=== PATIENT | male | born 1940 | race Caucasian/White ===

== ENCOUNTER 2016-12-21 09:13 | Inpatient (IN) | payer OTHER ==
[~2016-12-21] VITALS: Ht 172.7 cm; Wt 58.6 kg
--- NOTE | 2016-12-21 10:51 | DIAGNOSTIC IMAGING REPORT ---
PROCEDURE: CT HEAD WITHOUT CONTRAST INDICATION: WEAKNESS TECHNIQUE: Noncontrast axial images with sagittal and coronal reformations. COMPARISON: None. FINDINGS: There is mild to moderate old small vessel disease of the white matter (most pronounced in the occipital lobes). Brain and ventricles are otherwise normal. No evidence of hemorrhage. There is severe mucosal thickening in the left maxillary sinus, left ethmoid air cells, and left sphenoid sinus (suggests chronic obstruction of the left nasal passage). The rest of the sinuses and mastoids appear normal IMPRESSION: 1. 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 2. Otherwise a head CT. No definite evidence of acute process. 3. Severe mucosal thickening in the left maxillary sinus, left ethmoid air cells, and left sphenoid sinus suggests chronic obstruction of the nasal passages. 4. Findings discussed with Dr. Aaron Colunga at [address] scans at this facility use dose modulation, iterative reconstruction, and/or weight-based dosing when appropriate to reduce radiation dose to as low as reasonably achievable.
--- NOTE | 2016-12-21 10:53 | DIAGNOSTIC IMAGING REPORT ---
PROCEDURE: XR CHEST 1 VIEW INDICATION: Possible CVA. Weakness. Cough. TECHNIQUE: Portable AP view (1005 hours). COMPARISON: None. FINDINGS: There is a 9 cm right upper lung density or mass with elevation of the right hilum. Left lung is clear. Heart and mediastinum are normal. Thorax is normal. IMPRESSION: 1. There is a 9 cm right upper lung density or mass suspicious for neoplasm. 2. Otherwise negative chest.
--- NOTE | 2016-12-21 11:16 | DIAGNOSTIC IMAGING REPORT ---
PROCEDURE: CT THORAX WITH CONTRAST INDICATION: Right upper lung mass. TECHNIQUE: 125 ml of Isovue 300 injected intravenously and axial images were obtained of the entire thorax with sagittal and coronal reconstructions. COMPARISON: Comparison is made to chest x-ray earlier today (12/21/2016). FINDINGS: There is an 8.5 x 6.0 x 8.3 cm anterior segment right upper lung density with central necrosis, volume loss, and central dystrophic calcification. This is associated erosive changes of the right second rib. There are 10 mm nodular densities in the left lateral lingula and right medial lung base. There are three to four vague areas of parenchymal changes in the medial right lower lobe and left upper lung. Heart and mediastinum are normal size. There is an old calcified mediastinal lymph node, but no evidence of adenopathy. Mild degenerative changes of the thoracic spine. Portions of the upper abdomen are seen. There are small calcified gallstones. Adrenal glands appear normal. There are multiple bilateral renal cysts. There is a 1.4 cm low density area in the left lobe of the liver most likely representing a cyst. IMPRESSION: 1. There is an 8.5 x 6.0 x 8.3 cm right upper lung mass with erosive changes of the right second rib. Findings are highly suspicious for neoplasm. 2. There are 10 mm nodular densities in the lateral lingula and right medial lung base suspicious for neoplasm (e.g., metastatic disease). 3. There are vague parenchymal densities in the right lower lobe and left upper lung which could represent scarring or developing areas of pneumonitis. 4. Old granulomatous disease (right upper lung and mediastinum). 5. Cholelithiasis. 6. Findings discussed with Dr. Aaron Colunga. All CT scans at this facility use dose modulation, iterative reconstruction, and/or weight-based dosing when appropriate to reduce radiation dose to as low as reasonably achievable.
--- NOTE | 2016-12-21 12:27 | ED NURSING NOTES ---
Clinical Report - Nurses [facility] [address] [place] [address] 12/21/2016 9:15 Patient: YAAKOV GILES TRIAGE Triage time 0913. Acuity: LEVEL 2. Chief Complaint: WEAKNESS and FACIAL DROOP. 09:13 12/21/16. Alert. No acute distress. SEPSIS SCREEN: Sepsis Screen. Negative (no infection suspected/documented). CRUZ COMA SCORE: [place] Coma Scale: 15- eyes open spontaneously (4); best verbal response- oriented x 4 (5); best motor response- obeys commands (6). --09:24 Drea Durant R.N. 09:13 12/21/16. BP: 166/81. HR: 79. RR: 16. O2 saturation: 100%. Temp: 98.0 F. Pain level now 0/10. --09:24 Drea Durant R.N. Weight: 58.5 kg measured. Height/Length: 68 inches Per Patient. BMI: 19.6. --09:20 Drea Durant R.N. Medications Cosopt Ophthalmic. --09:22 Drea Durant R.N. Allergies Celebrex. --09:22 Drea Durant R.N. History Arrived by private vehicle. Historian: patient. Accompanied by friend. Primary physician (jairo). ( states he started having difficulty eating last night and difficulty placing dentures this morning. Looked in the mirror and noticed right sided facial droop. Presents with cc of facial droop, difficulty walking and "unable to see the whole newspaper this morning".). This started last night. ( Code stroke called at 0910). Treatment SYSTEMS MANAGER: None. SOCIAL HX: Former smoker. No drug use. FALL RISK ASSESSMENT: Fall risk assessment completed. No fall risk identified. NUTRITIONAL RISK ASSESSMENT: The nutritional risk assessment revealed no deficiencies. FUNCTIONAL ASSESSMENT: Functional assessment: no impairments noted. LEARNING NEEDS ASSESSMENT: The learning needs assessment revealed no barriers. SKIN INTEGRITY ASSESSMENT: Skin integrity risk assessment completed. No skin integrity risk identified. --09:24 Drea Durant R.N. PROBLEMS: Cancer. Hypertension. --09:22 Drea Durant R.N. ADDITIONAL SURGERIES: Dental Surgery. Hernia Repair. Prostate surgery. --: Drea Durant R.N. Interventions ID band on patient. To treatment room. --09:24 Drea Durant R.N. PHYSICAL ASSESSMENT 09:12/21/16. Ambulatory to room. Baseline functional status: usually alert and oriented x4. GENERAL / NEURO / PSYCH: Awake. Oriented X 4. Alert. Mood/affect normal. ( right sided facial droop present. Equal bilateral integrated marketing specialist). HEENT: Right-sided facial weakness. RESPIRATORY: Respirations not labored. CVS: Capillary refill less than 2 seconds. SKIN: Skin is intact, warm and dry. --09:25 Drea Durant R.N. NURSING PROGRESS NOTES 09:12/21/2016 Site #1 started via IV in the right antecubital space with an 18g angiocath, with aseptic technique and good blood return; one attempt. Blood drawn: rainbow set. Labeled in the presence of the patient and sent to the lab. Saline lock flushed with 10 mL saline (Yana Bradford RN). --09:25 Drea Durant R.N. 09:12/21/2016 Site #2 started via IV in the left antecubital space with an 18g angiocath, with aseptic technique and good blood return; one attempt. Blood drawn: rainbow set. Labeled in the presence of the patient and sent to the lab. Saline lock flushed with 10 mL saline. --09:26 Drea Durant R.N. 09:12/21/16. The plan of care for this patient has been created. model maker, pulse oximeter and NIBP monitor placed on patient. Patient gowned. Head of bed elevated. Call light placed in reach. Bed placed in lowest position. Brakes of bed on. Patient ready for evaluation- chart flagged. --09:25 Drea Durant R.N. EKG time: (09:27 AM). EKG was performed by a tech and shown to the ED physician. ( Old EKG from medical records given to ED Doctor). --09:32 Madeline Lawton Care transferred and report given (from KYLE Hicks). --09:33 Yana Salgado R.N. 09:27. Oxygen administered by nasal cannula at 2 liters. --09:34 Yana Salgado R.N. 09:28. Patient transported to CT by stretcher with tech. --09:30 Drea Durant R.N. 09:38. Patient returned from CT by stretcher with tech. --09:40 Drea Durant R.N. Patient returned from CT. --09:43 Yana Salgado R.N. 09:46 12/21/16. BP: 139/89. HR: 81 (regular and normal rate). RR: 16. O2 saturation: 100%. --09:47 Yana Salgado R.N. Patient ID band checked for patient name, birthdate and medical record number: patient confirmed. Instructions provided to collect clean catch urine and patient verbalized understanding. Clean catch urine collected with return of yellow-colored clear urine; sample sent to lab for urinalysis. Specimen labeled in the presence of the patient. --09:47 Yana Salgado R.N. 10:14 12/21/2016 Started bag #1 1000 mL IV Fluids IV NS (Saline); bolus of 500 mL over 30 minute(s) then at 125 mL/hr over 4 hour(s) via site #2 via IV pump. Allergies verified and confirmed 5 rights. IV patency established. IV site checked: no pain, redness, or swelling. IV flushed thoroughly pre- and post-medication administration. --10:24 Rosalee Vega R.N. late entry - 10:20 12/21/16. Patient transported to CT by stretcher with tech. --10:28 Rosalee Vega R.N. Patient returned from radiology by stretcher with tech. --10:45 Yana Salgado R.N. 10:45 12/21/16. BP: 140/80. HR: 83 (regular and normal rate). RR: 13. O2 saturation: 100% on nasal cannula at 2 liters/minute. Additional comments: pt. remains alert and oriented x3. . --10:46 Yana Salgado R.N. 10:46 12/21/2016 IV Fluids IV NS Continued: at the rate of 125 mL/hr. 500 mL remaining bag #1. IV patency established. IV site checked: no pain, redness, or swelling. IV flushed thoroughly. --10:47 Yana Salagdo R.N. 11:13 12/21/16. --11:13 Rosalee Vega R.N. 11:11 12/21/16. BP: 153/95 (regular adult cuff) taken on the right arm, while sitting. HR: 84. RR: 16 (regular). O2 saturation: 100% on nasal cannula at 2 liters/minute. --11:13 Rosalee Vega R.N. ( Patient given water). --11:15 Rosalee Vega R.N. ( Asked patient is he would like some lunch but he refused, he says he is vegetarian, sugar free and gluten free. I informed him we can get him lunch that suites those standards. He will let us when he gets hungry). --11:38 Rosalee Vega R.N. 11:35 12/21/16. BP: 150/80 (regular adult cuff) taken on the right arm, while sitting. HR: 90. RR: 15. O2 saturation: 100% on nasal cannula at 2 liters/minute. Pain level now: 0/10. --11:38 Rosalee Vega R.N. Patient transported to radiology by stretcher with tech. (12:00 Dec 21 2016). --12:06 Rosalee Vega R.N. Patient returned from radiology by stretcher with tech. (12:Dec 21 2016). ( Patient was hooked by up to IV drip by RN.). --12:24 Rosalee Vega R.N. 12:23 12/21/16. BP: 147/97 (regular adult cuff) taken on the right arm, while sitting. HR: 83. RR: 15. O2 saturation: 100% on room air. Pain level now: 0/10. --12:24 Rosalee Vega R.N. 12:32 12/21/16. ( H&P given to pt family member to assist with filling out). --12:32 Sita Washburn 12:00 12/21/16. BP: 147/97 (regular adult cuff) taken on the left arm, while sitting. HR: 70 (regular). RR: 16 (regular). O2 saturation: 100% on nasal cannula at 2 liters/minute. Pain level now: 0/10. --12:49 Rosalee Vega R.N. ( Patient getting help filling out admitting patient hx form from friend/neighbor). --13:12 Rosalee Vega R.N. 13:09 12/21/16. HR: 89. RR: 20. O2 saturation: 98% on room air. Temp: 97.8 F (oral). Pain level now: 0/10. --13:12 Rosalee Vega R.N. 13:13 12/21/16. BP: 146/83 (regular adult cuff) taken on the right arm, while sitting. --13:13 Rosalee Vega R.N. ( Patients #1 bag is completed). --13:32 Rosalee Vega R.N. 13:31 12/21/16. BP: 150/92 (regular adult cuff) taken on the right arm, while sitting. HR: 90. RR: 15 (regular). O2 saturation: 96% on room air. Pain level now: 0/10. --13:32 Rosaele Vega R.N. ( Patient offered something to drink or eat, says no). --13:57 Rosalee Vega R.N. 13:56 12/21/16. BP: 148/99 (regular adult cuff) taken on the right arm, while sitting. HR: 92. RR: 19. O2 saturation: 97% on room air. Pain level now: 0/10. --13:57 Rosalee Vega R.N. ( Patient doing well, visiting with his neighbor who is sitting at bedside). --13:58 Rosalee Vega R.N. 14:20 12/21/16. BP: 149/78 (regular adult cuff) taken on the right arm, while sitting. HR: 94. RR: 16 (regular). O2 saturation: 97% on room air. Pain level now: 0/10. --14:21 Rosalee Vega R.N. ( Tried calling upstairs to give report, they will call back in 10 minutes for report). --14:48 Rosalee Vega R.N. 14:47 12/21/16. BP: 137/90 (regular adult cuff) taken on the right arm, while sitting. HR: 98. RR: 16 (regular). O2 saturation: 97% on room air. Pain level now: 0/10. --14:48 Rosalee Vega R.N. Care transferred and report given (RN). --14:53 Rosalee Vega R.N. DISPOSITION / DISCHARGE 14:58 12/21/16. BP: 155/87 (regular adult cuff) taken on the right arm, while sitting. HR: 96. RR: 16 (regular). O2 saturation: 97% on room air. Temp: 98.2 F (oral). Pain level now: 0/10. --14:59 Rosalee Vega R.N. 14:54 12/21/2016 Site #[address] upon transfer; patent, no pain and no signs of infection or infiltration. --15:09 Rosalee Vega R.N. 14:54 12/21/2016 Site #[address] upon transfer; patent, no pain and no signs of infection or infiltration. --15:09 Rosalee Vega R.N. Departure time: 14:58 Dec 21 2016. Admitted to Acute Care (1458). Transported via stretcher by transport team with IV. Report was given to a nurse via a phone call. Report included patient's care, treatment, medications, reviewed medication reconcilliation, and condition (including any recent changes or anticipated changes). All questions were answered. Report was acknowledged and care was transferred. --15:10 Rosalee Vega R.N. 14:56 12/21/2016 IV Saline Lock Drip IV Discontinued: bag #1 completed upon transfer. Total amount infused: 1000 mL. IV patency established. IV site checked: no pain, redness, or swelling. IV flushed thoroughly. --15:11 Rosalee Vega R.N. Locked/Released at 12/21/2016 15:12 by Rosalee Vega R.N.
--- NOTE | 2016-12-21 12:27 | ED CLINICAL REPORT ---
Clinical Report - Physicians/Mid Levels [facility] [address] [place] [address] 12/21/2016 9:15 Patient: YAAKOV GILES Time Seen: 09:19. Arrived- By private vehicle. Historian- patient and friend. HISTORY OF PRESENT ILLNESS Chief Complaint: WEAKNESS and FACIAL DROOP. The patient has had visual disturbance with blurred vision and decreased vision of the right and left eye (he feels that his vision is worse since yesterday in spite of his history of macular degeneration.). This started last night, patient was last known well (last night) and is still present. It was abrupt in onset and has been constant. At its maximum deficit described as mild. When seen in the E.D., deficit described as mild. The patient has had dizziness ("off balance"). Usually is alert and oriented X3 and has normal mobility. REVIEW OF SYSTEMS No chills, fever, sweats, calf pain or chest pain. No difficulty breathing, pedal edema, palpitations, abdominal pain or constipation. No diarrhea, nausea or vomiting. He has had a cough productive of moderate amounts of clear, white sputum. he says that he slipped and fell on some snow several weeks ago and has had persistent low back pain since. He receives injections in his eyesfor his macular degeneration. He said the last one performed on the 18th of this month was very painful. For several days he had marketed tearing from that eye. That resolved but then several days ago he started having tearing from the eye again which has persisted. All systems otherwise negative, except as recorded above. PAST HISTORY ( PCP - Lety). Problems: Basal cell carcinoma of the lower lip. Prostate Cancer. Macular Degeneration. Hypercholesterolemia. Cancer. Hypertension. Additional Surgeries: Basal cell carcinoma resection. Dental Surgery. Hernia Repair. Prostate surgery. Medications: Cosopt Ophthalmic. Allergies: Celebrex. SOCIAL HISTORY Former smoker (He says that he quit many years ago). FAMILY HISTORY Premature onset heart disease in first-degree relative (sibling); stroke in first-degree relative (father). ADDITIONAL NOTES The nursing notes have been reviewed. PHYSICAL EXAM Vital Signs: 12/21/2016 09:13 BP: 166/81. HR: 79. RR: 16. O2 saturation: 100%. Temp: 98.0 F. Have been reviewed. Appearance: Alert. Head: Head atraumatic. Eyes: Pupils equal, round and reactive to light. ENT: Pharynx normal. Neck: Soft right-sided carotid bruit present. CVS: Normal heart rate and rhythm. Heart sounds normal. Respiratory: No respiratory distress. Decreased air movement. No rales, wheezes or rhonchi. Abdomen: Soft and nontender. No organomegaly. Back: Normal inspection. Skin: Skin warm and dry. Normal skin color. No rash. Normal skin turgor. Extremities: Extremities exhibit normal ROM. No calf tenderness. No lower extremity edema. Neuro: Alert. Oriented X 3. Mild left-sided facial weakness. LABS, X-RAYS, AND EKG EKG: Rate: 68. Non-specific ST segment / T wave abnormalities. Changes present when compared to prior EKG. (13 Jun 2011). The study has been independently viewed by me. LS-Spine X-rays: Degenerative joint disease. The X-rays were independently viewed by me. Chest X-ray: (IMPRESSION: 1. There is a 9 cm right upper lung density or mass suspicious for neoplasm.). The X-rays were interpreted by the radiologist and contemporaneously by me. CT Head: (IMPRESSION: 1. 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 2. Otherwise a head CT. No definite evidence of acute process. 3. Severe mucosal thickening in the left maxillary sinus, left ethmoid air cells, and left sphenoid sinus suggests chronic obstruction of the nasal passages.). The study was interpreted contemporaneously by me and discussed with the radiologist. Chest CT: (IMPRESSION: 1. There is an 8.5 x 6.0 x 8.3 cm right upper lung mass with erosive changes of the right second rib. Findings are highly suspicious for neoplasm. 2. There are 10 mm nodular densities in the lateral lingula and right medial lung base suspicious for neoplasm (e.g., metastatic disease). 3. There are vague parenchymal densities in the right lower lobe and left upper lung which could represent scarring or developing areas of pneumonitis. 4. Old granulomatous disease (right upper lung and mediastinum). 5. Cholelithiasis.). The study was interpreted contemporaneously by me and discussed with the radiologist. Laboratory Tests: UA-Culture if indicated: (KIRILL: 12/21/2016 09:50) ( MsgRcvd 12/21/2016 10:08) Final results Test Result Flag Units (Reference) URINE COLOR YELLOW URINE APPEARANCE CLEAR URINE GLUCOSE NEGATIVE (NEGATIVE) URINE BILIRUBIN NEGATIVE (NEGATIVE) URINE KETONE NEGATIVE (NEGATIVE) URINE SPECIFIC GRAVITY <= 1.005 L (1.010-1.030) URINE PH 6.0 (5.0-8.0) URINE PROTEIN NEGATIVE (NEGATIVE) URINE UROBILINOGEN 0.2 EU/dL (0.2-1.0) URINE NITRITE NEGATIVE (NEGATIVE) URINE BLOOD NEGATIVE (NEGATIVE) URINE LEUK ESTERASE NEGATIVE (NEGATIVE) URINE RBC NONE SEEN rbc/hpf (0-1) URINE WBC NONE SEEN wbc/hpf (0-1) URINE EPITHELIAL CELLS 0-1 EPI/hpf (0-5) URINE BACTERIA NONE SEEN (NONE SEEN) URINE COMMENT CULT NOT INDICATED URINE CULTURES ARE SET-UP BASED ON THE FOLLOWING CRITERIA:POSITIVE NITRITEPOSITIVE LEUKOCYTE ESTERASEGREATER THAN 10 WHITE BLOOD CELLSMODERATE (2+) OR GREATER BACTERIA CBC w Diff: (KIRILL: 12/21/2016 09:25) ( MsgRcvd 12/21/2016 09:48) Final results Test Result Flag Units (Reference) WHITE BLOOD COUNT 6.8 K/uL (4.5-11.5) RED BLOOD COUNT 5.07 M/uL (4.50-5.90) HEMOGLOBIN 16.0 gm/dL (13.5-17.5) HEMATOCRIT 45.6 % (41.0-53.0) MEAN CELL VOLUME 90 fL (80-100) MEAN CORPUSCULAR HGB 31 pg (26-34) MEAN CORPUSCULAR HGB CONC 35 g/dL (31-37) RED CELL DISTRIBUTION WIDTH 12.5 % (11.6-14.8) PLATELET COUNT 239 K/uL (150-400) NEUTROPHIL % 60.8 % (50-75) LYMPH % 29.3 % (25-40) MONO % 7.2 % (3-14) EOSINOPHIL % 1.8 % (0-4) BASOPHIL % 0.9 % (0-2) PT with INR: (KIRILL: 12/21/2016 09:25) ( [facility] 12/21/2016 09:41) Final results Test Result Flag Units (Reference) INR 0.9 (0.8-1.2) Low Intensity Therapy: INR 1.5-2.0 PT range 18.5-23.1Mod.Intensity Therapy: INR 2.0-3.0 PT range 23.1-31.5High Intensity Therapy: INR 2.5-3.5 PT range 27.4-35.5High Intensity Therapy 2: INR 3.0-4.0 PT range 31.5-39.3 APTT 30 SECONDS (24-34) BNP: (KIRILL: 12/21/2016 09:25) ( [facility] 12/21/2016 10:03) Final results Test Result Flag Units (Reference) B-TYPE NATRIURETIC PEPTIDE 52.0 pg/ml (5-100) CMP: (KIRILL: 12/21/2016 09:25) ( [facility] 12/21/2016 09:53) Final results Test Result Flag Units (Reference) GLUCOSE 114 H mg/dL (70-110) BUN 13 mg/dL (7-18) CREATININE 1.1 mg/dL (0.6-1.3) Estimated GFR >60 mL/min Estimated GFR- >60 mL/min Note: Persistent reduction over 3 months in eGFR<60 mL/min/1.73 m2 defines CKD. Patients with eGFR values>=60 mL/min/1.73 m2 may also have CKD if evidence ofpersistent proteinuria. Additional information may be foundat www.kidney.org. SODIUM 140 mmol/L (136-145) POTASSIUM 4.2 mmol/L (3.5-5.1) CHLORIDE 104 mmol/L (98-107) CARBON DIOXIDE 29 mmol/L (21-32) CALCIUM 9.0 mg/dL (8.5-10.1) TOTAL PROTEIN 7.4 g/dL (6.4-8.2) ALBUMIN 3.8 g/dL (3.3-5.0) BILIRUBIN, TOTAL 0.5 mg/dL (0.0-1.0) ALKALINE PHOSPHATASE 103 U/L (46-116) AST (SGOT) 13 L U/L (15-37) ALT (SGPT) 23 U/L (12-78) LIPASE 176 U/L (73-393) AMYLASE 57 U/L (25-115) CPK 40 U/L (24-260) TROPONIN I <0.05 L ng/mL (0.00-1.5) TROPONIN REFERENCE RANGE:<0.1 NEGATIVE0.1-1.5 INDETERMINANT>1.5 POSITIVE . PROGRESS AND PROCEDURES Course of Care: e will be admitted for further evaluation and workup of his issues including carotid dopplers studies, MRI - MRA brain and biopsy of his lung mass. Discussed case with hospitalist, (Rosina). Reviewed test results and need for additional work-up. Agreed upon decision to admit. Health care provider will see patient in hospital. Patient/family counseled. Old medical records reviewed. Disposition orders written (in [facility]). Disposition: Admitted. CLINICAL IMPRESSION Chronic sinusitis. Back pain. 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 L facial neurological deficit R carotid bruit pulmonary masses. (Electronically signed by Aaron Colunga MD 12/21/2016 15:37)
--- NOTE | 2016-12-21 12:27 | ED ORDER SUMMARY ---
..... Patient: YAAKOV GILES OrderSheet [facility] VisitID: [id number] [place] [address] 76y, M Registration Date/Time: 12/21/2016 ORDER SHEET Weight: 58.5 kg (measured) Allergies: Celebrex GENERAL ORDERS: CT Head wo Cont Urgent (09:12/21/2016 Pablo RODRIGUEZ) (Ack 9:27 TBergley) (9:42 KWilliams R.N.) Chest 1V Urgent (:12/21/2016 Pablo RODRIGUEZ) (Ack 9:27 TBergley) (10:02 TBergley) Wood Repatcher (Continuous) (12/21/2016 Pablo RODRIGUEZ) (9:26 KWilliams R.N.) (Ack 9:27 TBergley) CBC w Diff Urgent (:12/21/2016 Pablo RODRIGUEZ) (9:26 KWilliams R.N.) (Ack 9:27 TBergley) CMP Urgent (:12/21/2016 Pablo RODRIGUEZ) (9:26 KWilliams R.N.) (Ack 9:27 TBergley) UA-Culture if indicated Urgent (:12/21/2016 Pablo RODRIGUEZ) (Ack 9:27 TBergley) (9:47 SReitz R.N.) PT with INR Urgent (:12/21/2016 Pablo RODRIGUEZ) (9:26 KWilliams R.N.) (Ack 9:27 TBergley) PTT Urgent (:12/21/2016 Pablo RODRIGUEZ) (9:26 KWilliams R.N.) (Ack 9:27 TBergley) Amylase Urgent (:12/21/2016 Pablo RODRIGUEZ) (9:26 KWilliams R.N.) (Ack 9:27 TBergley) Lipase Urgent (:12/21/2016 Pablo RODRIGUEZ) (9:26 KWilliams R.N.) (Ack 9:27 TBergley) CPK Urgent (:12/21/2016 Pablo RODRIGUEZ) (9:26 KWilliams R.N.) (Ack 9:27 TBergley) Troponin-I Urgent (09:12/21/2016 Pablo RODRIGUEZ) (9:26 KWilliams R.N.) (Ack 9:27 TBergley) BNP Urgent (09:12/21/2016 Pablo RODRIGUEZ) (9:26 KWilliams R.N.) (Ack 9:27 TBergley) Oxygen (2 L/min) (NC) (09:12/21/2016 Pablo RODRIGUEZ) (Ack 9:27 TBergley) (9:35 SReitz R.N.) Pulse oximeter (:12/21/2016 Pablo RODRIGUEZ) (9:26 KWboniams R.N.) (Ack 9:27 TBergley) EKG - ER Stat (:12/21/2016 Pablo RODRIGUEZ) (9:26 KWboniams R.N.) (Ack 9:27 TBergley) CT Thorax w Cont (No) (N/A) Urgent (10:10 12/21/2016 Pablo RDORIGUEZ) (Ack 10:18 TBergley) (13:24 JSanders R.N.) Lumbar Spine 2 or 3V Urgent (11:36 12/21/2016 TBergley verbal order read back to Pablo RODRIGUEZ) (Ack 11:38 TBergley) (13:24 JSanders R.N.) MEDICATION ORDERS: IV FLUIDS: IV Saline Lock (09:12/21/2016 Pablo RODRIGUEZ) (9:26 KWilliams R.N.) IV NS : initial bolus 500 mL (1000 mL/hr), then 125 mL/hr for X1 (NOW) (10:21 12/21/2016 SIRIAanders R.N. verbal order read back to Pablo RODRIGUEZ) (10:24 Montserrats R.N.) ORDER SHEET NOTES: [Electronically signed by Rosalee Vega R.N. (15:12 12/21/2016)] [Electronically signed by Aaron Colunga MD (15:37 12/21/2016)] [Electronically locked/signed by Rosalee Vega R.N. (15:12 12/21/2016)]
--- NOTE | 2016-12-21 12:27 | ED ORDER SUMMARY ---
..... Patient: YAAKOV GILES OrderSheet [facility] VisitID: [id number] [place] [address] 76y, M Registration Date/Time: 12/21/2016 ORDER SHEET Weight: 58.5 kg (measured) Allergies: Celebrex GENERAL ORDERS: CT Head wo Cont Urgent (09:12/21/2016 Pablo RODRIGUEZ) (Ack 9:27 TBergley) (9:42 KWilliams R.N.) Chest 1V Urgent (:12/21/2016 Pablo RODRIGUEZ) (Ack 9:27 TBergley) (10:02 TBergley) Otc Clerk (Continuous) (12/21/2016 Pablo RODRIGUEZ) (9:26 KWilliams R.N.) (Ack 9:27 TBergley) CBC w Diff Urgent (:12/21/2016 Pablo RODRIGUEZ) (9:26 KWilliams R.N.) (Ack 9:27 TBergley) CMP Urgent (:12/21/2016 Pablo RODRIGUEZ) (9:26 KWilliams R.N.) (Ack 9:27 TBergley) UA-Culture if indicated Urgent (:12/21/2016 Pablo RODRIGUEZ) (Ack 9:27 TBergley) (9:47 SReitz R.N.) PT with INR Urgent (:12/21/2016 Pablo RODRIGUEZ) (9:26 KWilliams R.N.) (Ack 9:27 TBergley) PTT Urgent (:12/21/2016 Pablo RODRIGUEZ) (9:26 KWilliams R.N.) (Ack 9:27 TBergley) Amylase Urgent (:12/21/2016 Pablo RODRIGUEZ) (9:26 KWilliams R.N.) (Ack 9:27 TBergley) Lipase Urgent (:12/21/2016 Pablo RODRIGUEZ) (9:26 KWilliams R.N.) (Ack 9:27 TBergley) CPK Urgent (:12/21/2016 Pablo RODRIGUEZ) (9:26 KWilliams R.N.) (Ack 9:27 TBergley) Troponin-I Urgent (09:12/21/2016 Pablo RODRIGUEZ) (9:26 KWilliams R.N.) (Ack 9:27 TBergley) BNP Urgent (09:12/21/2016 Pablo RODRIGUEZ) (9:26 KWilliams R.N.) (Ack 9:27 TBergley) Oxygen (2 L/min) (NC) (09:12/21/2016 Pablo RODRIGUEZ) (Ack 9:27 TBergley) (9:35 SReitz R.N.) Pulse oximeter (:12/21/2016 Pablo RODRIGUEZ) (9:26 KWboniams R.N.) (Ack 9:27 TBergley) EKG - ER Stat (:12/21/2016 Pablo RODRIGUEZ) (9:26 KWboniams R.N.) (Ack 9:27 TBergley) CT Thorax w Cont (No) (N/A) Urgent (10:10 12/21/2016 Pablo RODRIGUEZ) (Ack 10:18 TBergley) (13:24 JSanders R.N.) Lumbar Spine 2 or 3V Urgent (11:36 12/21/2016 TBergley verbal order read back to Pablo RODRIGUEZ) (Ack 11:38 TBergley) (13:24 JSanders R.N.) MEDICATION ORDERS: IV FLUIDS: IV Saline Lock (09:12/21/2016 Pablo RODRIGUEZ) (9:26 KWilliams R.N.) IV NS : initial bolus 500 mL (1000 mL/hr), then 125 mL/hr for X1 (NOW) (10:21 12/21/2016 SIRIAanders R.N. verbal order read back to Pablo RODRIGUEZ) (10:24 Montserrats R.N.) ORDER SHEET NOTES: [Electronically signed by Rosalee Vega R.N. (15:12 12/21/2016)] [Electronically signed by Aaron Colunga MD (15:37 12/21/2016)] [Electronically locked/signed by Rosalee Vega R.N. (15:12 12/21/2016)]
--- NOTE | 2016-12-21 13:41 | DIAGNOSTIC IMAGING REPORT ---
PROCEDURE: XR LUMBAR SPINE 2 OR 3 VIEWS INDICATION: TRAUMA/INJURY TECHNIQUE: Three views. COMPARISON: None. FINDINGS: Mild dextroscoliosis and moderate degenerative changes of the lower lumbar spine. No evidence of an acute process or fracture. There is radiopaque contrast material in the urinary tract and bladder. IMPRESSION: 1. Mild dextroscoliosis in the moderate degenerative changes of the lower lumbar spine.
--- NOTE | 2016-12-21 14:09 | Progress Note ---
Subjective General Admission History and Physical Examination Patient Name: William Gamboa Admission Date: December 21, 2016 Primary Care Provider: Fran Davidson M.D. Attending Physician: Juan Almaguer M.D. Admitting Physician: Juan Almaguer M.D. Code Status: Full Code Room: 210-B SUBJECTIVE Historian: Patient, family, previous medical records Reliability: Fair Chief Complaint: Left-sided facial weakness History of Present Illness: The patient is a 76-year-old white male with a significant past medical history of prostate CA, glaucoma, who presented to [facility] emergency department on the day of admission secondary to complaints of left-sided facial weakness. [facility] ER evaluation was consistent with stroke versus Reyes's palsy with left-sided facial weakness, right lung mass-rule out neoplasm. Secondary to the above, the patient was admitted by Juan Almaguer M.D. for further evaluation and treatment. PAST MEDICAL HISTORY Illnesses: 1. Glaucoma 2. Prostate CA 3. Macular degeneration 4. Skin cancer 5. Chronic low back pain Allergies: 1. Celebrex Medications: 1. Cosopt eyedrops 1 drop both eyes twice a day Surgery: 1. Prostatectomy 2. Skin cancer resection 3. Hernia surgery Injuries: 1. No significant Hospitalizations: 1. For above surgery FAMILY HISTORY Parents: 1. Father, William, , 86, CVA, 2. Mother, Vernell, , 80, surgical Siblings: 1. Male, toni, living, 73, back problems, prostate CA 2. Male, Alex, living, 67, colon cancer, throat cancer, renal cell carcinoma 3. Male, Wing, living, 56, myocardial infarction Children: 1. Male, Phillip, living, 49, learning disability Other significant family history: None SOCIAL HISTORY 1. Marital Status: 2. Advent: None 3. Education: High school and 2 years of vocational education 4. Employment History: Technical Sales Engineer, 40 years, retired 5. Occupational health exposures: Dust, radiation, asbestos, lead, mercury, loud noises, heavy lifting HABITS 1. Tobacco: 40 pack years, stopped 2000 2. Drugs: None 3. Alcohol: None 4. Caffeine: 6 cups per day-coffee HEALTH SUPERVISION Item/Test 1. Vision screen: 2016 2. Cholesterol Profile: 2013 3. PSA: 2015 4. RANDELL: No recent 5. FOBT: No recent 6. Blood Glucose: 2016 7. Colonoscopy: 2009 8. History and physical exam: 2013 9. Audiogram: No recent 10. Mammogram: Not applicable 11. Pap/pelvic exam: Not applicable IMMUNIZATIONS: 1. Pneumococcal: 2013 2. Influenza: No previous 3. Tetanus: 2008 ADVANCED DIRECTIVES: 1. Living well: No 2. POLST: No 3. Code Status: FULL CODE 4. Durable Power Finisher Hot Strip Health care: No 5. Donor card: No REVIEW OF SYSTEMS Remarkable for those things stated in the history of present illness and past medical history. Seventeen point review of system completed with the following notable findings: General: Back pain Eyes: Excessive tearing, Dryness, visual loss, redness Nose: Sinus pain Lungs: Sputum production Gastrointestinal: Constipation Musculoskeletal: Joint stiffness/pain, backache Neurological: Balance problems, headaches Psychological: Insomnia Physical Exam Vital Signs / I&Os Blood pressure: 147/97 mmHg Pulse: 83 Respirations: 15 Temperature: 98.1 Fahrenheit orally O2 saturation: 100% room air General Appearance Alert, Oriented X3, Cooperative, No acute distress HEENT Atraumatic, PERRLA, EOMI, Moist mucous membranes Lungs Normal air movement, rales right upper chest Neck Supple, No JVD, No masses, bruit present right side Cardiovascular Regular rate and rhythm, Normal S1 and S2, grade 1/6 systolic murmur present. No HJR or JVD Abdomen Normal bowel sounds, Soft, No tenderness, No guarding Extremities No cyanosis, No clubbing, No edema Neurological Cranial nerves intact, Strength 5/5 x4 ext's, Facial weakness present left side without forehead sparing. Psych/Mental Status Mental status normal, Mood normal LAB Results Laboratory Tests 12/21 12/21 12/21 0950 0925 0925 Chemistry Plasma Sodium (136 - 145 mmol/L) 140 Plasma Potassium (3.5 - 5.1 mmol/L) 4.2 Plasma Chloride (98 - 107 mmol/L) 104 CO2 (Enzymatic) (21 - 32 mmol/L) 29 BUN (7 - 18 mg/dL) 13 Creatinine (0.6 - 1.3 mg/dL) 1.1 Est GFR ( Amer) (mL/min) >60 Est GFR (Non-Af Amer) (mL/min) >60 Glucose (70 - 110 mg/dL) 114 Plasma Calcium (8.5 - 10.1 mg/dL) 9.0 Total Bilirubin (0.0 - 1.0 mg/dL) 0.5 AST (15 - 37 U/L) 13 ALT (12 - 78 U/L) 23 Alkaline Phosphatase (46 - 116 U/L) 103 Creatine Kinase (24 - 260 U/L) 40 Troponin (0.00 - 1.5 ng/mL) <0.05 B-Natriuretic Peptide (5 - 100 pg/ml) 52.0 Total Protein (6.4 - 8.2 g/dL) 7.4 Albumin (3.3 - 5.0 g/dL) 3.8 Amylase (25 - 115 U/L) 57 Lipase (73 - 393 U/L) 176 Coagulation INR (0.8 - 1.2) 0.9 APTT (24 - 34 SECONDS) 30 Hematology WBC (4.5 - 11.5 K/uL) 6.8 RBC (4.50 - 5.90 M/uL) 5.07 Hgb (13.5 - 17.5 gm/dL) 16.0 Hct (41.0 - 53.0 %) 45.6 MCV (80 - 100 fL) 90 MCH (26 - 34 pg) 31 RDW (11.6 - 14.8 %) 12.5 Neut % (Auto) (50 - 75 %) 60.8 Lymph % (Auto) (25 - 40 %) 29.3 Moore % (Auto) (3 - 14 %) 7.2 Eos % (Auto) (0 - 4 %) 1.8 Baso % (Auto) (0 - 2 %) 0.9 Plt Count, EDTA (150 - 400 K/uL) 239 PUBS MCHC (31 - 37 g/dL) 35 Urines Urine Color YELLOW Urine Appearance CLEAR Urine pH (5.0 - 8.0) 6.0 Ur Specific [place] (1.010 - 1.030) <= 1.005 Urine Protein (NEGATIVE) NEGATIVE Urine Ketones (NEGATIVE) NEGATIVE Urine Blood (NEGATIVE) NEGATIVE Urine Nitrite (NEGATIVE) NEGATIVE Urine Bilirubin (NEGATIVE) NEGATIVE Urine Urobilinogen (0.2 - 1.0 EU/dL) 0.2 Ur Leukocyte Esterase (NEGATIVE) NEGATIVE Urine RBC (0 - 1 rbc/hpf) NONE SEEN Urine WBC (0 - 1 wbc/hpf) NONE SEEN Ur Epithelial Cells (0 - 5 EPI/hpf) 0-1 Urine Bacteria (NONE SEEN) NONE SEEN Urine Glucose (NEGATIVE) NEGATIVE Urine Comment CULT NOT INDICATED Imaging Chest X-Ray IMPRESSION: 1. There is a 9 cm right upper lung density or mass suspicious for neoplasm. 2. Otherwise negative chest. Dictated by: DANA KAZT MD D: ROOSEVELT;12/21/[address] Scan Head IMPRESSION: 1. 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 2. Otherwise a head CT. No definite evidence of acute process. 3. Severe mucosal thickening in the left maxillary sinus, left ethmoid air cells, and left sphenoid sinus suggests chronic obstruction of the nasal passages. 4. Findings discussed with Dr. Aaron Colunga at 0950 hours. Dictated by: DANA KATZ MD D: ROOSEVELT;12/21/[address] Scan Chest IMPRESSION: 1. There is an 8.5 x 6.0 x 8.3 cm right upper lung mass with erosive changes of the right second rib. Findings are highly suspicious for neoplasm. 2. There are 10 mm nodular densities in the lateral lingula and right medial lung base suspicious for neoplasm (e.g., metastatic disease). 3. There are vague parenchymal densities in the right lower lobe and left upper lung which could represent scarring or developing areas of pneumonitis. 4. Old granulomatous disease (right upper lung and mediastinum). 5. Cholelithiasis. 6. Findings discussed with Dr. Aaron Colunga. Dictated by: DANA KATZ MD D: ROOSEVELT;12/21/16 1115 X-Ray Lumbar Spine IMPRESSION: 1. Mild dextroscoliosis in the moderate degenerative changes of the lower lumbar spine. Dictated by: DANA KATZ MD D: ROOSEVELT;12/21/16 1341 Assessment and Plan Problem List 1. Lung mass Plan -Patient presents with findings of right-sided lung mass -Plan [id number] 2. 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 Sinus tachycardia Status Acute Onset Date Unknown Plan -Patient with findings of sinus tachycardia -Check thyroid function -Lopressor 25 mg by mouth every 6 hours, 2.5/5 mg IV every 3 hours when necessary -Monitor 5. Sinus disease Status Acute Onset Date Unknown Plan -Patient with severe mucosal thickening on Head CT -begin nasal steroids/decongestant spray -ENT follow up 6. Carotid bruit present Plan -Patient with findings of carotid bruit right side -Aspirin 325 mg by mouth daily -Carotid Doppler and ultrasound Current status: Fair, unstable Anticipated discharge date: Anticipated discharge in 2-3 days Anticipated discharge placement: Home Patient care time: Time spent in chart review, patient interview, physical exam, CPOE, and care documentation: 70 minutes Visit to patient today: 2 Complexity of care: High E&M Codes Admission: Inpt-High/[id number]
[2016-12-21 15:26] VITALS: BP 134/86
--- NOTE | 2016-12-21 15:38 | ED DISCHARGE INSTRUCTIONS ---
Patient: YAAKOV GILES General Instructions [facility] VisitID: [id number] [address] [place] [address] 76y, M Registration Date/Time: 12/21/2016 Chronic sinusitis. Back pain. L facial neurological deficit R carotid bruit pulmonary masses. (Electronically signed by Aaron Colunga MD 12/21/2016 15:37)
--- NOTE | 2016-12-21 15:38 | ED MAR SUMMARY ---
..... Medication Administration Record [facility] [address] [place] [address] Patient: YAAKOV GILES Visit ID: [id number] 76y, M Weight: 58.5 kg Height/Length: 68 in BMI: 19.6 ALLERGIES: Celebrex Start 10:14 12/21/2016 Rosalee Vega RTomas, Continued Upon Disposition 10:46 12/21/2016 Yana Salgado RGordonNGordon Medication Administered: IV NS (SALINE), Dose: IV Fluids over 4 hour(s), Rate: 125 mL/hr, Bolus: 500 mL over 30 minute(s), Dispensed: 1000 mL bag, Site: #2 left . Medication Ordered: IV NS : initial bolus 500 mL (1000 mL/hr), then 125 mL/hr for X1 (NOW).
--- NOTE | 2016-12-21 15:38 | ED MED RECONCILIATION SUMMARY ---
Patient: YAAKOV GILES Medication Reconciliation Report [facility] VisitID: [id number] [address] [place] [address] 76y, M Registration Date/Time: 12/21/2016 Weight: 58.5 kg Height/Length: 68 in. BMI: 19.6 ALLERGIES: Celebrex The patient's Home Medications are listed below: THE FOLLOWING MEDICATIONS NEED TO BE RECONCILED: Cosopt Ophthalmic The source(s) of the original Home Medication information: Not obtained. The following Medications were given to the patient in the Emergency Department: IV NS IV Fluids bolus 500 mL over 30 minute(s), then 125 mL/hr, administered: 12/21/2016 10:14:00 AM The following Medications were prescribed to the patient: None.
--- NOTE | 2016-12-21 15:38 | ED MAR SUMMARY ---
..... Medication Administration Record [facility] [address] [place] [address] Patient: YAAKOV GILES Visit ID: [id number] 76y, M Weight: 58.5 kg Height/Length: 68 in BMI: 19.6 ALLERGIES: Celebrex Start 10:14 12/21/2016 Rosalee Vega RTomas, Continued Upon Disposition 10:46 12/21/2016 Yana Salgado RGordonNGordon Medication Administered: IV NS (SALINE), Dose: IV Fluids over 4 hour(s), Rate: 125 mL/hr, Bolus: 500 mL over 30 minute(s), Dispensed: 1000 mL bag, Site: #2 left . Medication Ordered: IV NS : initial bolus 500 mL (1000 mL/hr), then 125 mL/hr for X1 (NOW).
--- NOTE | 2016-12-21 15:38 | ED MED RECONCILIATION SUMMARY ---
Patient: YAAKOV GILES Medication Reconciliation Report [facility] VisitID: [id number] [address] [address] 76y, M Registration Date/Time: 12/21/2016 Weight: 58.5 kg Height/Length: 68 in. BMI: 19.6 ALLERGIES: Celebrex The patient's Home Medications are listed below: THE FOLLOWING MEDICATIONS NEED TO BE RECONCILED: Cosopt Ophthalmic The source(s) of the original Home Medication information: Not obtained. The following Medications were given to the patient in the Emergency Department: IV NS IV Fluids bolus 500 mL over 30 minute(s), then 125 mL/hr, administered: 12/21/2016 10:14:00 AM The following Medications were prescribed to the patient: None.
--- NOTE | 2016-12-21 15:38 | ED DISCHARGE INSTRUCTIONS ---
Patient: YAAKOV GILES General Instructions [facility] VisitID: [id number] [address] [place] [address] 76y, M Registration Date/Time: 12/21/2016 Chronic sinusitis. Back pain. L facial neurological deficit R carotid bruit pulmonary masses. (Electronically signed by Aaron Colunga MD 12/21/2016 15:37)
[2016-12-21] MEDS ORDERED: DORZOLAMIDE HCL/1 ML OP (17:37)
[2016-12-21 18:11] VITALS: BP 138/98
[2016-12-22 02:44] VITALS: BP 114/72
[2016-12-22 06:47] VITALS: BP 104/62
[2016-12-22 10:46] VITALS: BP 129/63
--- NOTE | 2016-12-22 12:49 | Progress Note ---
Subjective Constitutional Weakness. Denies: Fever, Chills, Sweats, Other. Eyes Denies: Other (able to close L eye a little). ENT Denies: Ear Pain, Nasal Discharge, Mouth Swelling, Throat Pain, Throat Swelling. Respiratory Denies: Cough, Wheezing, Hemoptysis, Pleuritic Pain, Sputum. Cardiovascular Denies: Chest Pain, Palpitations, Other (heart rate slower with BP med). Gastrointestinal Denies: Nausea, Vomiting, Abdominal Pain. Genitourinary Denies: Dysuria, Frequency, Incontinence, Hematuria. Musculoskeletal Back Pain (improving a lot with presnt Tx). Skin Denies: Rash, Lesions, Jaundice, Bruising. Neurological Weakness. Denies: Incoordination, Change in speech, Confusion, Seizures (L facial weakness improving.). Physical Exam Vital Signs / I&Os Vital Signs Date Time Temp Pulse Resp B/P Pulse O2 O2 Flow FiO2 Ox Delivery Rate 12/22 1046 66 18 129/63 98 Room Air 12/22 0749 96 12/22 0647 97.7 67 18 104/62 96 Room Air 12/22 0244 97.5 74 16 114/72 97 Room Air 12/21 1811 98.2 91 20 138/98 95 Room Air 12/21 1740 Room Air 12/21 1526 98.1 85 20 134/86 97 Room Air I&O 12/21 0800 12/21 1600 12/22 0000 Intake Total 550 Output Total Balance 550 General Appearance Alert, Oriented X3, Cooperative, No acute distress HEENT able to close L eye with difficulty Lungs Clear to auscultation, I:E 1:1 decreased breath sounds Cardiovascular Regular rate and rhythm, Normal S1 and S2, No murmurs, gallops, rubs Abdomen Normal bowel sounds, No tenderness, No guarding, No rebound, No masses Extremities No cyanosis, No edema, No tenderness Skin No Rashes, No Breakdown, No Significant Lesions Neurological L facial weakness Psych/Mental Status Mental status normal, Mood normal Assessment and Plan Problem List 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 2. Sinus tachycardia Status Acute Onset Date Unknown Plan Heart rate and BP controlled with metoprolol. Will continue. 3. Back pain Plan Improved with ketorolac and prednisone. X rays OK. Consider bone scan or CT if pain recurs. 4. Lung mass Plan Aspirin and ketorolac stopped in anticipation or lung mass biopsy tomorrow. E&M Codes Rounding: Inpt-Moderate/[id number]
[2016-12-22 14:55] VITALS: BP 119/71
[2016-12-22 18:57] VITALS: BP 111/63
--- NOTE | 2016-12-22 21:07 | DIAGNOSTIC IMAGING REPORT ---
PROCEDURE: US BILATERAL CAROTID DOPPLER INDICATION: cva TECHNIQUE: Color Doppler duplex imaging of the carotid and vertebral vessels. COMPARISON: Carotid duplex ultrasound 05/09/2011. FINDINGS: Mild mixed plaque formation of the bifurcations bilaterally. Vessels are patent. Right common carotid artery peak systolic velocity 65 cm/second. Right internal carotid artery peak systolic velocity 69 cm/second. Right external carotid artery peak systolic velocity 76 cm/second. Right xbilkabn-ef-jrjkwp carotid artery ratio 1.0 Right vertebral artery peak systolic velocity 66 cm/second antegrade. Left common carotid artery peak systolic velocity 99 cm/second. Left internal carotid artery peak systolic velocity 100 cm/second. Left external carotid artery peak systolic velocity 109 cm/second. Left cvavvpjw-wz-bzkceq carotid artery ratio 1.0 Left vertebral artery peak systolic velocity 44 cm/second antegrade. IMPRESSION: 1. Mild next plaque formation of the bifurcations bilaterally without hemodynamically significant lesion 2. Bilateral ICA 5-15% stenosis, unchanged. Velocity criteria are extrapolated from diameter data as defined by the Society of Radiologists in Ultrasound Consensus Conference, Radiology 2003; 229; 340-346.
--- NOTE | 2016-12-22 21:07 | DIAGNOSTIC IMAGING REPORT ---
PROCEDURE: US BILATERAL CAROTID DOPPLER INDICATION: cva TECHNIQUE: Color Doppler duplex imaging of the carotid and vertebral vessels. COMPARISON: Carotid duplex ultrasound 05/09/2011. FINDINGS: Mild mixed plaque formation of the bifurcations bilaterally. Vessels are patent. Right common carotid artery peak systolic velocity 65 cm/second. Right internal carotid artery peak systolic velocity 69 cm/second. Right external carotid artery peak systolic velocity 76 cm/second. Right xoxcpyvm-kg-wucxnj carotid artery ratio 1.0 Right vertebral artery peak systolic velocity 66 cm/second antegrade. Left common carotid artery peak systolic velocity 99 cm/second. Left internal carotid artery peak systolic velocity 100 cm/second. Left external carotid artery peak systolic velocity 109 cm/second. Left pvbhdabt-yi-yqnpzc carotid artery ratio 1.0 Left vertebral artery peak systolic velocity 44 cm/second antegrade. IMPRESSION: 1. Mild next plaque formation of the bifurcations bilaterally without hemodynamically significant lesion 2. Bilateral ICA 5-15% stenosis, unchanged. Velocity criteria are extrapolated from diameter data as defined by the Society of Radiologists in Ultrasound Consensus Conference, Radiology 2003; 229; 340-346.
[2016-12-22 22:56] VITALS: BP 105/58
[2016-12-23 02:00] VITALS: BP 99/59
[2016-12-23 08:53] VITALS: BP 155/78
[2016-12-23 10:49] VITALS: BP 161/83
--- NOTE | 2016-12-23 16:57 | Progress Note ---
Subjective General Patient seen and examined, patient has persistent left sided facial weakness. Patient otherwise has no other complaints. Constitutional Denies: Fever, Chills, Sweats, Weakness, Malaise, Other. Eyes Denies: Pain, Vision Change, Conjunctival Inflammation, Eyelid Inflammation, Redness, Other. Respiratory Denies: Cough, Dry, SOB w/exertion, Wheezing, Hemoptysis, Pleuritic Pain, Sputum , Other. Cardiovascular Denies: Chest Pain, Palpitations, Orthopnea, PND, Edema, Light-headedness, Other. Gastrointestinal Denies: Nausea, Vomiting, Abdominal Pain, Diarrhea, Constipation, Melena, Hematochezia, Other. Genitourinary Denies: Dysuria, Frequency, Incontinence, Hematuria, Retention, Other. Musculoskeletal Denies: Neck Pain, Shoulder Pain, Arm Pain, Back Pain, Hand Pain, Leg Pain, Foot Pain, Other. Neurological Denies: Weakness, Numbness, Incoordination, Change in speech, Confusion, Seizures, Other. Physical Exam Vital Signs / I&Os Vital Signs Date Time Temp Pulse Resp B/P Pulse O2 O2 Flow FiO2 Ox Delivery Rate 12/23 1049 97.5 64 18 161/83 98 Room Air 0.0 12/23 0853 97.5 54 18 155/78 100 Room Air 0.0 12/23 0200 97.5 51 18 99/59 100 Room Air 12/23 0140 96 12/22 2256 97.5 57 20 105/58 94 Room Air 12/22 1857 97.3 59 20 111/63 99 Room Air I&O 12/22 0800 12/22 1600 12/23 0000 Intake Total 744 1530 1216 Output Total 267 004 8194 Balance 369 1080 -209 General Appearance Alert, Oriented X3, No acute distress HEENT PERRLA, Moist mucous membranes Lungs Clear to auscultation, Normal air movement Cardiovascular Regular rate and rhythm, Normal S1 and S2, No murmurs, gallops, rubs Abdomen Soft, No tenderness Extremities No edema, Normal pulses, No tenderness Skin No Breakdown Neurological Normal speech, Sensation intact, Cranial nerves intact, Strength 5/ 5 x4 ext's, No lateralizing signs LAB Results Laboratory Tests 12/23 0520 Chemistry Plasma Sodium (136 - 145 mmol/L) 143 Plasma Potassium (3.5 - 5.1 mmol/L) 4.1 Plasma Chloride (98 - 107 mmol/L) 110 CO2 (Enzymatic) (21 - 32 mmol/L) 24 BUN (7 - 18 mg/dL) 17 Creatinine (0.6 - 1.3 mg/dL) 0.8 Est GFR ( Amer) (mL/min) >60 Est GFR (Non-Af Amer) (mL/min) >60 Glucose (70 - 110 mg/dL) 102 Plasma Calcium (8.5 - 10.1 mg/dL) 7.7 Hematology WBC (4.5 - 11.5 K/uL) 8.3 RBC (4.50 - 5.90 M/uL) 4.35 Hgb (13.5 - 17.5 gm/dL) 13.3 Hct (41.0 - 53.0 %) 39.8 MCV (80 - 100 fL) 92 MCH (26 - 34 pg) 31 RDW (11.6 - 14.8 %) 12.6 Neut % (Auto) (50 - 75 %) 73.4 Lymph % (Auto) (25 - 40 %) 18.9 Schuyler % (Auto) (3 - 14 %) 7.2 Eos % (Auto) (0 - 4 %) 0.3 Baso % (Auto) (0 - 2 %) 0.2 Plt Count, EDTA (150 - 400 K/uL) 210 PUBS MCHC (31 - 37 g/dL) 33 Assessment and Plan Problem List 1. Reyes's palsy Status Acute Onset Date Unknown Plan - no significant improvement - will c/w daily steroids for the time being - will recommend eye drops and taping eye closed during sleep - will await return of function 2. Lung mass Plan - pt had a biopsy of the lung mass today - will have the patient call for results 3. Sinus disease Status Acute Onset Date Unknown Plan - improving signifcantly - will c/w nasal spray as needed
--- NOTE | 2016-12-23 17:18 | DIAGNOSTIC IMAGING REPORT ---
PROCEDURE: XR CHEST 1 VIEW INDICATION: 2 HOUR POST LUNG BX 1700 TECHNIQUE: Single view chest. 1700 hours COMPARISON: 12/21/2016 FINDINGS: Stable cardiomediastinal contour. Superior retraction of the right hilum. Focal rightward deviation of the trachea. Volume loss in the right hemithorax secondary to heterogeneous parenchymal opacity encompassing the anterior right upper lobe. The left lung is hyperinflated and hyperlucent. The lower right lung is clear. No post biopsy pneumothorax. No pleural effusion. Intact osseous structures. IMPRESSION: 1. No post biopsy pneumothorax. 2. Right upper lobe lung mass with tethering of adjacent structures. 3. Findings of COPD.
--- NOTE | 2016-12-23 17:22 | DIAGNOSTIC IMAGING REPORT ---
PROCEDURE: CT LUNG/MEDIASTINUM BIOPSY INDICATION: biopsy of right lung mass TECHNIQUE: Written informed consent was obtained from the patient prior to the procedure. Risks discussed included but were not limited to bleeding, infection, injury to adjacent structures, pain, pneumothorax and allergic reaction. It was agreed to proceed. Supine position on the CT table. Preliminary CT imaging demonstrated heterogeneous, ill-defined right upper lobe lung mass with areas of adjacent necrosis and surrounding pneumonitis. An appropriate skin entry site was chosen and marked. The skin was prepped and draped in the usual sterile fashion. Skin and subcutaneous tissue was anesthetized thoroughly with 1% lidocaine. Under intermittent CT guidance, a 19 gauge needle was directed into the right upper lobe lung mass. Through this, six passes were made with a 20-gauge core biopsy device. Samples acquired were fragmented. Samples were placed into formalin and taken to the lab. CT images were acquired documenting the needle in position during the procedure. Sample adequacy was assessed. The needle was removed, hemostasis was achieved, the skin was cleansed, and a sterile bandage was applied. The patient was helped off the table. The patient left the radiology department in stable condition and went back to his in patient room. He tolerated the procedure quite well and there were no immediate complications. Two hour post-biopsy chest x-ray demonstrated no evidence of right lung pneumothorax. COMPARISON: Chest CT 12/21/2016 FINDINGS: Fragmented samples obtained from a partially necrotic right upper lobe lung mass. IMPRESSION: 1. Successful CT-guided biopsy of right upper lobe lung mass. 2. Pathology is pending.
[2016-12-23 17:43] VITALS: BP 105/64
[2016-12-23 22:54] VITALS: BP 117/67
[2016-12-24 02:44] VITALS: BP 117/76
[2016-12-24 07:17] VITALS: BP 144/83
[2016-12-24] MEDS ORDERED: EYE LUBRICANT OP (10:40)
[2016-12-24] MEDS ORDERED: PREDNISONE20 MG PO (10:41)
[2016-12-24] MEDS ORDERED: FLUTICASONE PR50 MCG (10:41)
--- NOTE | 2016-12-24 10:44 | Provider's Discharge Care Plan ---
Problem, Goal, Plan Problem List 1. Reyes's palsy Instructions: - continue with prednisone for the duration of its course - follow up with you primary care physician 2. Lung mass Instructions: - have your primary care physician call in for results
--- NOTE | 2016-12-24 10:44 | Discharge Summary ---
Discharge Summary Report Admit Date 12/21/16 Discharge Date 12/24/16 Admission Diagnosis left sided facial droop Discharge Diagnosis bells palsy with right upper lung mass Brief History The patient is a 76-year-old white male with a significant past medical history of prostate CA, glaucoma, who presented to [facility] emergency department on the day of admission secondary to complaints of left-sided facial weakness. [facility] ER evaluation was consistent with stroke versus Reyes's palsy with left-sided facial weakness, right lung mass-rule out neoplasm. Secondary to the above, the patient was admitted by Juan Almaguer M.D. for further evaluation and treatment. Hospital Course Patient was admitted for left sided facial droop and right lung mass. Patient was found to have bells palsy and was subsequently treated with steroids. Patient had some resolution of the facial droop and did well. Patient additionally was seen to have a right anterior lung wall mass. Patient underwent biopsy of the mass without any incidence. Patient at this point will be discharged. Patient will follow up with his primary care doctor. He will complete his course of steroids and will call for the biopsy results. Patient is otherwise stable. General Appearance Alert, Oriented X3, No acute distress Lungs Clear to auscultation, Normal air movement Cardiovascular Normal S1, Normal S2 Abdomen Soft, No hepatospenomegaly, No masses Neurological - trigeminal nerve shows return of function. Patient is able to close his eye without assistance currently Lab/Imaging Laboratory Tests 12/24 0530 Chemistry Plasma Sodium (136 - 145 mmol/L) 143 Plasma Potassium (3.5 - 5.1 mmol/L) 3.4 Plasma Chloride (98 - 107 mmol/L) 110 CO2 (Enzymatic) (21 - 32 mmol/L) 26 BUN (7 - 18 mg/dL) 11 Creatinine (0.6 - 1.3 mg/dL) 0.9 Est GFR ( Amer) (mL/min) >60 Est GFR (Non-Af Amer) (mL/min) >60 Glucose (70 - 110 mg/dL) 89 Plasma Calcium (8.5 - 10.1 mg/dL) 8.0 Total Bilirubin (0.0 - 1.0 mg/dL) 0.6 AST (15 - 37 U/L) 13 ALT (12 - 78 U/L) 15 Alkaline Phosphatase (46 - 116 U/L) 69 Total Protein (6.4 - 8.2 g/dL) 5.5 Albumin (3.3 - 5.0 g/dL) 2.8 Discharge Instructions/Meds - follow up with your pmd - complete your course of steroids - call for the biopsy results.
[2016-12-24 11:16] VITALS: BP 143/80
== END 2016-12-24 14:30 | disposition home or self-care (01) | DRG 182 ==
LOC: ED SRH 09:13 → TRANS SRH 12:40 → ACUTE2 SRH 15:02
PROVIDERS: ADMIT Emergency Medicine
PROC: 0BBC3ZX Excision of Right Upper Lung Lobe, Percutaneous Approach, Diagnostic (ICD-10-PCS; principal; 2016-12-23)
DX: C34.11 Malignant neoplasm of upper lobe, right bronchus or lung (principal); G51.0 Bell's palsy; J32.9 Chronic sinusitis, unspecified; R00.0 Tachycardia, unspecified; R09.89 Other specified symptoms and signs involving the circulatory and respiratory systems; Z85.46 Personal history of malignant neoplasm of prostate; Z87.891 Personal history of nicotine dependence
CPT/HCPCS: 82306; 82445; 85244; 90004; 90047; 90074; 90100; 90616; 91286; 91320; 92235; 92530; 92610; 94001; 94060; 95059

== ENCOUNTER 2017-01-18 08:52 | Outpatient (CLI) | payer OTHER ==
[~2017-01-18 08:52] MED LIST: DORZOLAMIDE HCL/1 ML OP; EYE LUBRICANT OP; FLUTICASONE PR50 MCG; PREDNISONE20 MG PO
--- NOTE | 2017-01-18 11:56 | DIAGNOSTIC IMAGING REPORT ---
PROCEDURE: MR BRAIN W/WO CONTRAST INDICATION: LEFT FACIAL DROOP, LUNG CA TECHNIQUE: T1 sagittal and T2 coronal images. T1, T2, FLAIR, gradient, and diffusion axial images of the brain. Following 15 ml of intravenous gadolinium, FAT-SAT T1 sagittal, axial and coronal images were obtained. COMPARISON: Head CT 12/21/2016. FINDINGS: Mild cortical atrophy with mild enlargement of the ventricular system. Mild white matter chronic ischemic changes. There are multiple enhancing lesion: 1.6 cm right cerebellar, 1 cm left cerebellar, 2.2 cm medial left temporal lobe, 1.8 cm right parotid, 0.5 cm left sylvian fissure, 0.4 cm and 0.6 cm right frontal lobe and 0.9 cm left parietal lobe lesion near the convexity. There is some cytotoxic edema around some of the lesions but no significant mass effect or hemorrhage. There is no midline shift. Normal flow voids. Orbits are unremarkable. Extensive mucosal thickening of the left maxillary, left ethmoid, left frontal and sphenoid sinuses, unchanged. Mastoids are clear. IMPRESSION: 1. Multiple (8) cerebellar and cerebral enhancing lesions most consistent with metastatic disease 2. Mild atrophy and white matter chronic ischemic changes 3. Severe left frontal, ethmoid, maxillary and sphenoid sinus disease, unchanged. 4. Results called to Dr. Baker (voicemail).
== END 2017-01-18 23:00 ==
LOC: MRI SRH 08:52
DX: G93.9 Disorder of brain, unspecified (principal); R29.810 Facial weakness; C34.90 Malignant neoplasm of unspecified part of unspecified bronchus or lung